=== PATIENT | male | born 1960 | race Caucasian/White ===

== ENCOUNTER 2022-04-21 11:51 | Emergency (ER) | payer SELFPAY ==
[2022-04-21] VITALS (9 sets, daily range): BP systolic 139–168; BP diastolic 82–105; PULSE 70–82; RESP 18; TEMP 36.7–37.2; O2SAT 90–95; BMI 31.8
--- NOTE | 2022-04-21 12:02 | USCV_ITS ---
AryaMadhu arzate Age: 61 Gender: M : 1960 Exam Date: 04/21/2022 12:47 Ordering Phys: Mary Pressley Technologist: LATOYA Exam Location: [facility] Indication: post op knee 3 days PROCEDURES: Venous duplex imaging was performed in only the left lower extremity. The following venous structures were evaluated: common femoral vein, profunda vein, proximal portion of the greater saphenous vein, superficial femoral vein, and the popliteal vein. In addition, the posterior tibial and peroneal trunk were evaluated. FINDINGS: Normal 2-D Doppler and augmentation and compressibility throughout the lower extremity venous structures. Additional imaging through the proximal calf veins also reveals no thrombus. Limited evaluation of the greater saphenous vein is patent with no thrombus. CONCLUSIONS No DVT left lower extremity. Dr. Radha Porras DO (Electronically Signed) Final Date: 21 April 2022 13:16 S
--- NOTE | 2022-04-21 12:04 | W.ED.EXTPRO ---
Documented by User: Mary Pressley, BOTTOM BUFFER-C 04/21/22 16:23 HPI - Extremity Problem General: Chief complaint: Extremity Problem,Nontraumatic Stated complaint: L knee pain Time Seen by Provider: 04/21/22 12:02 History of Present Illness: 61-year-old male patient in today for left-sided knee pain, swelling, and redness. Patient reports that he had a left total knee replacement on Monday this week. He reports that he is having more more pain extending down his leg. He arrived by ambulance today. He was given fentanyl and Zofran in route Associated symptoms: Deny chest pain or fever(s) Review of Systems Const: Denies: fever(s), chills or body aches Card: Denies: chest pain or palpitations Resp: Denies: dyspnea or productive cough Musc: Reports: extremity pain, joint pain, joint swelling, joint redness and joint warmth Physical Exam Const: COMMON NORMALS: no acute distress, patient oriented x3 and alert Resp: COMMON NORMALS: normal respiratory effort, No use of accessory muscles and clear to auscultation bilaterally AUSCULTATION: clear to auscultation bilaterally Cardio: COMMON NORMALS: regular rate, regular rhythm, S1 normal heart sound present and S2 normal heart sound present RATE: regular rate RHYTHM: regular rhythm HEART SOUNDS: S1 normal heart sound present and S2 normal heart sound present Extremity: OTHER: Left knee has surgical dressing in place. The knee is swollen, erythematous, warm to touch. Swelling extends to mid tibial. Patient has increased pain to palpation proximal to mid tibia. Bilateral lower extremities are slightly cool to touch no difference in temperature between the legs. Pedal pulses are palpable bilateral Neuro: COMMON NORMALS: patient oriented x3 SENSORIUM/ORIENTATION: Yes alert Course ED course: Venous duplex is negative for DVT. White blood cell count is 13. At 1402 I called and left a message for Dr. Zuleyma Faulkner's nurse at the orthopedic hospital in [facility]. Patient is already on antibiotics at home postop. At 1440 I did get in touch with Lucie at the orthopedic hospital in [facility]. I advised her of patient's lab results and also results of the venous Doppler. She reported that she would like patient to remain on same antibiotic. Make sure that he is elevating his extremity. She was fine with discharging the patient to home even with a minimally elevated white blood cell count as that is likely secondary to recent surgery. We will have patient follow-up with orthopedic surgeon short follow-up Patient's pain is currently out of control. Percocet 1 tab given in here now after discussion with Dr. Gaming. The leg is elevated and iced we will reevaluate in about 30 to 45 minutes 1610?patient's blood pressure is down to 125/76. He reports his pain level is controlled at this time he is no longer anxious or flushed. He is ready to be discharged to home. We had a lengthy discussion about keeping his pain under control at home and not letting it get out of hand. All questions answered to satisfaction. Vital Signs: Vital signs: Vital Signs Temperature 98.1 F 04/21/22 15:33 Pulse Rate 82 04/21/22 15:15 Respiratory Rate 18 04/21/22 15:12 Blood Pressure 157/96 04/21/22 15:15 Pulse Oximetry 95 04/21/22 15:15 Oxygen Delivery Me thod 04/21/22 12:02 MDM - Extremity (Nontraumatic) Medical Decision Making 61-year-old male patient in with increased knee pain, swelling, redness status post total knee replacement on Monday and orthopedics. He reports that he called his doctor's office today and they wanted him to come to the ER and have an ultrasound done to rule out blood clot. Venous duplex is negative for DVT. Labs show a minimally elevated white blood cell count however patient is only 2 days postop. Patient's blood pressure is elevated in the ER today. He does not typically have elevated blood pressure per his report. Discussed this patient's case with Dr. Gaming who is agreeable to patient having Percocet administered in ER today to get his pain under control for his dismissal home. He is agreeable that patient should have short-term follow-up with his orthopedic surgeon. Once patient's pain was under control he was discharged to home with instructions to have short-term follow-up with orthopedic surgeon. Lab Data : 04/21/22 12:13 04/21/22 12:13 Laboratory Results WBC 13.0 10^3/uL (4.0-10.0) H 04/21/22 12:13 RBC 4.36 10^6/uL (4.1-5.3) 04/21/22 12:13 Hgb 14.3 g/dL (11.7-16.6) 04/21/22 12:13 Hct 42.9 % (42.0-52.0) 04/21/22 12:13 MCV 98.4 fl (80-94) H 04/21/22 12:13 MCH 32.8 pg (28.0-34.0) 04/21/22 12:13 MCHC 33.3 g/dL (30.0-36.0) 04/21/22 12:13 RDW 12.7 % (12.1-15.1) 04/21/22 12:13 Plt Count 180 10^3/cmm (130-400) 04/21/22 12:13 MPV 12.9 fL (7.4-10.4) H 04/21/22 12:13 Neut % (Auto) 71.0 % 04/21/22 12:13 Lymph % (Auto) 17.6 % 04/21/22 12:13 [place] % (Auto) 11.0 % 04/21/22 12:13 Eos % (Auto) 0.1 % 04/21/22 12:13 Baso % (Auto) 0.1 % 04/21/22 12:13 Neut # (Auto) 9.20 10^3/uL (1.8-7.7) H 04/21/22 12:13 Lymph # (Auto) 2.3 10^3/uL (0.8-4.8) 04/21/22 12:13 [place] # (Auto) 1.4 10^3/uL (0.2-0.9) H 04/21/22 12:13 Eos # (Auto) 0.0 10^3/uL (0.0-0.8) 04/21/22 12:13 Baso # (Auto) 0.0 10^3/uL (0.0-0.1) 04/21/22 12:13 Nucleated RBC % (auto) 0 % 04/21/22 12:13 Nucleated RBCs # 0.0 /100WBC 04/21/22 12:13 Sodium 137 mmol/L (136-145) 04/21/22 12:13 Potassium 3.6 mmol/L (3.5-5.1) 04/21/22 12:13 Chloride 99 mmol/L (98-107) 04/21/22 12:13 Carbon Dioxide 25 mmol/L (22-29) 04/21/22 12:13 Anion Gap 16.6 (5-19) 04/21/22 12:13 BUN 13 mg/dL (8-23) 04/21/22 12:13 Creatinine 0.8 mg/dL (0.7-1.2) 04/21/22 12:13 GFR Calculation 98.3 mL/min (90-130) 04/21/22 12:13 Glucose 83 mg/dL (65-115) 04/21/22 12:13 Calculated Osmolality 283 mOsm/kg (285-295) L 04/21/22 12:13 Calcium 9.1 mg/dL (8.5-10.5) 04/21/22 12:13 Total Bilirubin 0.5 mg/dL (0.15-1.2) 04/21/22 12:13 AST 19 U/L (0-40) 04/21/22 12:13 ALT 22 U/L (0-41) 04/21/22 12:13 Alkaline Phosphatase 62 U/L (40-130) 04/21/22 12:13 Total Protein 6.7 g/dL (6.6-8.7) 04/21/22 12:13 Albumin 4.1 g/dL (3.5-5.2) 04/21/22 12:13 Globulin 2.6 g/dL (1.3-4.6) 04/21/22 12:13 Discharge Plan Discharge Patient Disposition: Home Clinical Impression: Knee pain, left Condition: Stable Prescriptions: No Action Miralax 17 gram Powder In Packet 17 g PO DAILY tizanidine 4 mg Tablet 4 mg PO Q6H PRN (Reason: Spasms) Mobic 15 mg Tablet 15 mg PO DAILY Aspir-81 81 mg Tablet,Delayed Release (Dr/Ec) 81 mg PO Q12H Ultram 50 mg Tablet 50 mg PO Q6H MDD 4 tabs PRN (Reason: Pain) Tylenol Ex Str Rapid Release 500 mg Tablet 1,000 mg PO Q6H PRN (Reason: Pain) cefadroxil 500 mg Capsule 500 mg PO DAILY Rx Instructions: for 7 days (filled 04/20/22) ibuprofen 200 mg Tablet 400 mg PO Q6H PRN (Reason: Pain) Stool Softener 100 mg Capsule 100 mg PO BID oxycodone 5 mg Tablet 5 - 10 mg PO Q4H MDD 6 tabs PRN (Reason: Pain) cholecalciferol (vitamin D3) 1,250 mcg (50,000 unit) capsule See Rx Instructions .ROUTE .COMPLEX Rx Instructions: 50,000 units po daily for a week then go back to taking 50,000 units once a week on mondays Discharge Orders: Discharge ED (Routine); Ordered 04/21/22 Ordered By: Mary Pressley Discharge Diet: Usual diet Patient Instructions: Opioid Safety, Pain Management Activity Restrictions/Additional Instructions: Have a short-term follow-up with your orthopedic surgeon for reevaluation. You may take one of your hydrocodone pain medications at 715 tonight. Use your tramadol as needed for breakthrough pain. It is much easier to keep pain under control then to bring it down once it is out of control. Make sure that you are elevating your knee above your nose. Make sure that you are using ice. Return to the ER for any new or worsening symptoms. Coding Level of Care Code ED Records Coordinator for Chg Fwd Exam Expanded Problem Focused Documented by User: Eusebio Gaming DO 04/21/22 17:04 HPI - Extremity Problem General: Chief complaint: Extremity Problem,Nontraumatic Stated complaint: L knee pain Time Seen by Provider: 04/21/22 12:02 Course Vital Signs: Vital signs: Vital Signs Temperature 98.1 F 04/21/22 15:33 Pulse Rate 82 04/21/22 15:15 Respiratory Rate 18 04/21/22 15:12 Blood Pressure 157/96 04/21/22 15:15 Pulse Oximetry 95 04/21/22 15:15 Oxygen Delivery Me thod 04/21/22 12:02 MDM - Extremity (Nontraumatic) Medical Decision Making 61-year-old male patient in with increased knee pain, swelling, redness status post total knee replacement on Monday and [facility]. He reports that he called his doctor's office today and they wanted him to come to the ER and have an ultrasound done to rule out blood clot. Venous duplex is negative for DVT. Labs show a minimally elevated white blood cell count however patient is only 2 days postop. Patient's blood pressure is elevated in the ER today. He does not typically have elevated blood pressure per his report. Discussed this patient's case with Dr. Gaming who is agreeable to patient having Percocet administered in ER today to get his pain under control for his dismissal home. He is agreeable that patient should have short-term follow-up with his orthopedic surgeon. Once patient's pain was under control he was discharged to home with instructions to have short-term follow-up with orthopedic surgeon. Chart reviewed and patient discussed with midlevel. Agree with assessment and plan. Lab Data : 04/21/22 12:13 04/21/22 12:13 Laboratory Results WBC 13.0 10^3/uL (4.0-10.0) H 04/21/22 12:13 RBC 4.36 10^6/uL (4.1-5.3) 04/21/22 12:13 Hgb 14.3 g/dL (11.7-16.6) 04/21/22 12:13 Hct 42.9 % (42.0-52.0) 04/21/22 12:13 MCV 98.4 fl (80-94) H 04/21/22 12:13 MCH 32.8 pg (28.0-34.0) 04/21/22 12:13 MCHC 33.3 g/dL (30.0-36.0) 04/21/22 12:13 RDW 12.7 % (12.1-15.1) 04/21/22 12:13 Plt Count 180 10^3/cmm (130-400) 04/21/22 12:13 MPV 12.9 fL (7.4-10.4) H 04/21/22 12:13 Neut % (Auto) 71.0 % 04/21/22 12:13 Lymph % (Auto) 17.6 % 04/21/22 12:13 [place] % (Auto) 11.0 % 04/21/22 12:13 Eos % (Auto) 0.1 % 04/21/22 12:13 Baso % (Auto) 0.1 % 04/21/22 12:13 Neut # (Auto) 9.20 10^3/uL (1.8-7.7) H 04/21/22 12:13 Lymph # (Auto) 2.3 10^3/uL (0.8-4.8) 04/21/22 12:13 [place] # (Auto) 1.4 10^3/uL (0.2-0.9) H 04/21/22 12:13 Eos # (Auto) 0.0 10^3/uL (0.0-0.8) 04/21/22 12:13 Baso # (Auto) 0.0 10^3/uL (0.0-0.1) 04/21/22 12:13 Nucleated RBC % (auto) 0 % 04/21/22 12:13 Nucleated RBCs # 0.0 /100WBC 04/21/22 12:13 Sodium 137 mmol/L (136-145) 04/21/22 12:13 Potassium 3.6 mmol/L (3.5-5.1) 04/21/22 12:13 Chloride 99 mmol/L (98-107) 04/21/22 12:13 Carbon Dioxide 25 mmol/L (22-29) 04/21/22 12:13 Anion Gap 16.6 (5-19) 04/21/22 12:13 BUN 13 mg/dL (8-23) 04/21/22 12:13 Creatinine 0.8 mg/dL (0.7-1.2) 04/21/22 12:13 GFR Calculation 98.3 mL/min (90-130) 04/21/22 12:13 Glucose 83 mg/dL (65-115) 04/21/22 12:13 Calculated Osmolality 283 mOsm/kg (285-295) L 04/21/22 12:13 Calcium 9.1 mg/dL (8.5-10.5) 04/21/22 12:13 Total Bilirubin 0.5 mg/dL (0.15-1.2) 04/21/22 12:13 AST 19 U/L (0-40) 04/21/22 12:13 ALT 22 U/L (0-41) 04/21/22 12:13 Alkaline Phosphatase 62 U/L (40-130) 04/21/22 12:13 Total Protein 6.7 g/dL (6.6-8.7) 04/21/22 12:13 Albumin 4.1 g/dL (3.5-5.2) 04/21/22 12:13 Globulin 2.6 g/dL (1.3-4.6) 04/21/22 12:13 Discharge Plan Discharge Patient Disposition: Home Clinical Impression: Knee pain, left Condition: Stable Prescriptions: No Action Miralax 17 gram Powder In Packet 17 g PO DAILY tizanidine 4 mg Tablet 4 mg PO Q6H PRN (Reason: Spasms) Mobic 15 mg Tablet 15 mg PO DAILY Aspir-81 81 mg Tablet,Delayed Release (Dr/Ec) 81 mg PO Q12H Ultram 50 mg Tablet 50 mg PO Q6H MDD 4 tabs PRN (Reason: Pain) Tylenol Ex Str Rapid Release 500 mg Tablet 1,000 mg PO Q6H PRN (Reason: Pain) cefadroxil 500 mg Capsule 500 mg PO DAILY Rx Instructions: for 7 days (filled 04/20/22) ibuprofen 200 mg Tablet 400 mg PO Q6H PRN (Reason: Pain) Stool Softener 100 mg Capsule 100 mg PO BID oxycodone 5 mg Tablet 5 - 10 mg PO Q4H MDD 6 tabs PRN (Reason: Pain) cholecalciferol (vitamin D3) 1,250 mcg (50,000 unit) capsule See Rx Instructions .ROUTE .COMPLEX Rx Instructions: 50,000 units po daily for a week then go back to taking 50,000 units once a week on mondays Discharge Orders: Discharge ED (Routine); Ordered 04/21/22 Ordered By: Mary Pressley Discharge Diet: Usual diet Patient Instructions: Opioid Safety, Pain Management Activity Restrictions/Additional Instructions: Have a short-term follow-up with your orthopedic surgeon for reevaluation. You may take one of your hydrocodone pain medications at 715 tonight. Use your tramadol as needed for breakthrough pain. It is much easier to keep pain under control then to bring it down once it is out of control. Make sure that you are elevating your knee above your nose. Make sure that you are using ice. Return to the ER for any new or worsening symptoms. Coding Level of Care Code ED Records Coordinator for Chg Fwd Exam Expanded Problem Focused
[2022-04-21 12:22] LABS: Basophils % 0.1 %; Eosinophils % 0.1 %; Hematocrit 42.9 % (42.0-52.0); Hemoglobin 14.3 g/dL (11.7-16.6); Lymphocytes # 2.3 10^3/uL (0.8-4.8); Lymphocytes % 17.6 %; Mean Corpuscular HGB Conc 33.3 g/dL (30.0-36.0); Mean Corpuscular Hemoglobin 32.8 pg (28.0-34.0); Mean Corpuscular Volume 98.4 fl (80-94); Mean Platelet Volume 12.9 fL (7.4-10.4); Monocytes # 1.4 10^3/uL (0.2-0.9); Nucleated Red Blood Cells % 0 %; Platelet Count 180 10^3/cmm (130-400); Red Blood Count 4.36 10^6/uL (4.1-5.3); Red Cell Distribution Width 12.7 % (12.1-15.1)
[2022-04-21 12:39] LABS: Alanine Aminotransferase 22 U/L (0-41); Albumin Level 4.1 g/dL (3.5-5.2); Alkaline Phosphatase 62 U/L (40-130); Anion Gap 16.6 (5-19); Aspartate Amino Transferase 19 U/L (0-40); Blood Urea Nitrogen 13 mg/dL (8-23); Calcium 9.1 mg/dL (8.5-10.5); Carbon Dioxide 25 mmol/L (22-29); Chloride 99 mmol/L (98-107); Globulin 2.6 g/dL (1.3-4.6); Glomerular Filtration Rate 98.3 mL/min (90-130); Glucose 83 mg/dL (65-115); Osmolality Calculated 283 mOsm/kg (285-295); Potassium 3.6 mmol/L (3.5-5.1); Sodium 137 mmol/L (136-145); Total Bilirubin 0.5 mg/dL (0.15-1.2); Total Protein 6.7 g/dL (6.6-8.7)
--- NOTE | 2022-04-21 13:26 | PC.NURSE ---
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 reports his rx pain medications is not touching the pain. he called his dr who recommended an ER visit to r/o DVT. pt resting in bed. surgical dressing in place, clean, dry, and intact. swelling to knee. pedal pulse palpable. skin pink/warm/dry. lung sounds clear bilat. bowel sounds present
[2022-04-21] MEDS: oxyCODONE-APAP 10-325 mg Tablet 1 TAB PO (15:12)
== END 2022-04-21 17:13 | disposition home or self-care (01) ==
PROVIDERS: Emergency Provider Nurse Practitioner Family; PCP Family Medicine
DX: M25.562 Pain in left knee (principal); Z79.82 Long term (current) use of aspirin; Z96.652 Presence of left artificial knee joint
CPT/HCPCS: 80053; 85025; 93971; 99284